=== PATIENT | male | born 1955 | race Caucasian/White ===

== ENCOUNTER → 2021-08-26 | Outpatient (CLI) | payer BC ==
[~2021-08-26] MED LIST: DULA3PEN PO; ENAL20TA11 PO; FENO134C16 PO; GLIP10TA18 PO; HYDR-3490 PO; METF10004 PO; METO1TAB32 PO; OMEP40CA5 PO; PRAV40TA2 PO
== END ==
LOC: M LABSMTC 09:05
PROVIDERS: ATTEND Anesthesiology
DX: Z01.812 Encounter for preprocedural laboratory examination (principal); Z20.822 Contact with and (suspected) exposure to COVID-19

== ENCOUNTER 2021-08-31 09:37 | Day surgery (SDC) | payer BC ==
[~2021-08-31] VITALS: Ht 172.7 cm; Wt 106.6 kg
[~2021-08-31 09:37] MED LIST changes: +NS 1,000 ML IV ONE
[2021-08-31] MEDS ORDERED: propofoL 500 MG/50 ML VIAL As Ordered ONE (11:14)
[2021-08-31] MEDS ORDERED: fentaNYL 100 MCG/2 ML INJECTION As Ordered ONE (11:14)
[2021-08-31] MEDS ORDERED: LIDOCAINE 2% 100MG/5ML SDV (FOR ANES.) As Ordered ONE (11:14)
[2021-08-31 11:40] VITALS: BP 142/78
== END 2021-08-31 11:55 | disposition home or self-care (01) ==
LOC: M OPP 09:37
PROVIDERS: ATTEND Surgery
DX: Z12.11 Encounter for screening for malignant neoplasm of colon (principal); Z80.0 Family history of malignant neoplasm of digestive organs; K21.00 Gastro-esophageal reflux disease with esophagitis, without bleeding; K31.89 Other diseases of stomach and duodenum; K29.50 Unspecified chronic gastritis without bleeding; R13.10 Dysphagia, unspecified; E11.9 Type 2 diabetes mellitus without complications; Z79.84 Long term (current) use of oral hypoglycemic drugs; Z79.899 Other long term (current) drug therapy; Z91.018 Allergy to other foods
CPT/HCPCS: 43239; 45378; 88305; J3010